=== PATIENT | male | born 1995 ===

== ENCOUNTER 2021-06-14 03:25 | Emergency (ER) | payer OTHER, SELFPAY ==
--- NOTE | ~2021-06-14 | CT_ITS ---
EXAMINATION: CT ABDOMEN AND PELVIS WITH CONTRAST CLINICAL INFORMATION: Abdominal pain COMPARISON: None TECHNIQUE: Multidetector volumetric images were obtained from the superior aspect of the liver through the pubic symphysis following administration 85 mL of Omnipaque 350 intravenous contrast. Sagittal and coronal reformatted images were obtained on the technologist's workstation. Oral contrast: No This CT examination was performed using dose optimization techniques as appropriate, variously including the following: *Automated exposure control *Adjustment of mA and/or kV according to patient size (this includes techniques or standardized protocols for targeted exams where dose is matched to indication/reason for exam; i.e. extremities or head) *Use of iterative reconstruction technique DLP: 412 mGy-cm FINDINGS: LUNG BASES: The visualized lung bases are unremarkable. LIVER, GALLBLADDER, AND BILIARY TREE: The liver is normal in size, shape, and attenuation. No focal hepatic lesion or biliary ductal dilatation is present. Gallbladder unremarkable. PANCREAS: Unremarkable. SPLEEN: Unremarkable. ADRENAL GLANDS: Unremarkable. KIDNEYS AND URETERS: The kidneys are normal in size, shape, and attenuation. No hydronephrosis, hydroureter, or calculi seen. No perinephric stranding. BLADDER: Unremarkable. GASTROINTESTINAL TRACT: The small and large bowel are unremarkable. The appendix is unremarkable. ABDOMINAL WALL: No significant hernia is appreciated. LYMPH NODES: Normal. VASCULAR: Unremarkable. PELVIC VISCERA: Unremarkable. OSSEOUS STRUCTURES: Unremarkable. CT/CT abdomen pelvis w con IMPRESSION: No significant abnormality.
[2021-06-14 03:35] VITALS: BP 146/99; PULSE 100; RESP 16; TEMP 37.1; O2SAT 97; BMI 22.4
[2021-06-14 03:53] LABS: MANUAL DIFF FLAG NO
[2021-06-14 03:54] LABS: Basophils Absolute Auto 0.1 X10*3/uL (0.0-0.2); Basophils Percent Auto 1.1 % (0-2); Eosinophils Percent Auto 0.5 % (0-4); Hematocrit 42.6 % (42.0-52.0); Hemoglobin 14.9 g/dl (14.0-18.0); Imm Gran Abs Auto 0.04 X10*3/uL (0.00-0.03); Imm Gran Pct Auto 0.5 % (0.0-0.4); Lymphocytes Absolute Auto 1.2 X10*3/uL (1.2-4.9); Lymphocytes Percent Auto 15.5 % (20-40); Mean Corpuscular Hemoglobin 32.9 pg (27.0-33.0); Mean Platelet Volume 10.8 fL (9.4-12.4); Monocytes Absolute Auto 0.7 X10*3/uL (0.1-1.2); Monocytes Percent Auto 9.1 % (2-11); Neutrophils Absolute Auto 5.5 x10*3/uL (2.0-8.3); Neutrophils Percent Auto 73.3 % (45-73); Platelet Count 212 X10*3/uL (160-400); Red Blood Count 4.53 X10*6/uL (4.60-5.80); Red Cell Distribution Width 12.6 % (11.0-16.0); White Blood Count 7.6 X10*3/uL (4.8-10.8)
[2021-06-14 03:56] VITALS: BP 111/87; PULSE 83; RESP 16; TEMP 36.7; O2SAT 96
[2021-06-14 04:10] LABS: Ethanol 283 mg/dL
[2021-06-14 04:16] LABS: Alanine Aminotransferase 137 U/L (0-40); Albumin Level 4.9 g/dL (3.5-5.0); Alkaline Phosphatase 108 U/L (39-117); Anion Gap 21 (12-20); Aspartate Amino Transferase 387 U/L (5-37); Bilirubin Direct 0.8 mg/dL (0.0-0.5); Bilirubin Total 1.4 mg/dL (0.0-1.0); Blood Urea Nitrogen 6 mg/dL (9-16); Calcium 10.3 mg/dL (8.4-10.2); Carbon Dioxide 29 mmol/L (22-29); Chloride 95 mmol/L (96-108); Creatinine Clr Calc Pharmacy 164.2; Estimated Glomerular Filt Rate > 60; Glucose Random 101 mg/dL (60-115); Lipase 141 U/L (8-78); Potassium 4.1 mmol/L (3.3-5.1); Sodium 141 mmol/L (135-145)
--- NOTE | 2021-06-14 04:35 | ED_ITS ---
HPI - Abdominal Pain General Chief Complaint: Abdominal Pain Stated Complaint: Abd pain Time Seen by Provider: 06/14/21 04:08 Source: patient Mode of arrival: ambulatory History of Present Illness HPI narrative: 26-year-old male who presents with alcohol dependence and although states that he has recently been sober endorses that he ?had a shot? just prior to presenting here this evening. Patient reports ongoing abdominal discomfort as sociated with nausea and vomiting but denies any fever chills and states that the pain is primarily on the right side of his abdomen. Patient states that he has been having this right-sided abdominal pain for number of months and was evaluated at [facility] where ?they did not do anything?. Related Data Allergies Allergy/AdvReac Type Severity Reaction Status Date / Time No Known Allergies Allergy Unverified 01/13/20 19:14 [No Known Allergies*] Review of Systems Review of Systems Pertinent positives and negatives as stated in HPI 10 point review of systems is otherwise negative. PMFSH Past Medical History Source: nursing notes reviewed Medical History Alcohol abuse Liver disease Withdrawal seizures Social History Social History Advance Directives: No Physical Exam ED Vital Signs: Vital Signs - 24 hr 06/14/21 03:35 06/14/21 03:56 06/14/21 05:20 Temperature 98.8 F 98.1 F Pulse Rate 100 83 77 Respiratory Rate 16 16 15 Blood Pressure 146/99 H 111/87 124/74 Pulse Oximetry 97 96 97 BMI result Body Mass Index 22.4 VITAL SIGNS: Reviewed. GENERAL: Well developed, well nourished, in no acute distress. HEAD: Normocephalic/atraumatic EYES: PERRLA, EOMI OROPHARYNX: no oral lesions noted, posterior pharynx clear LUNGS: Normal breath sounds. No adventitious sounds or accessory muscle use. SpO2<97> CARDIOVASCULAR: Regular rate and rhythm without noted murmurs ABDOMEN: Soft, tenderness noted in the epigastrium and right side of the abdomen without rebound, no signs of trauma, non-distended with bowel sounds. MUSCULOSKELETAL: No tenderness, deformities, or effusions noted on gross inspection. EXTREMITIES: No cyanosis, clubbing or edema. SKIN: Inspection of the skin reveals no rashes NEUROLOGIC: Alert and oriented x 4. Strength and sensation to light touch were grossly intact x 4. Course Course Course Narrative: 26-year-old male with history and clinical presentation suggestive of possible pancreatitis secondary to alcohol consumption, alcohol intoxication, and will evaluate for any other contributing factors. Patient placed on a CIWA scale. Review of all investigations consistent with mild pancreatitis, no acute findings on CT scan, after fluid resuscitation and on re-evaluation patient is noted to tolerate oral intake and is otherwise stable for discharge to home with medication to control the nausea and instructions to stop drinking alcohol. N oted elevated liver enzymes consistent with patient's underlying history of alcohol cirrhosis. MDM - Abdominal Pain Lab Data Result diagrams: 06/14/21 03:49 06/14/21 03:49 Labs: Lab Results 06/14/21 06/14/21 06/14/21 Range/Units 03:49 03:49 03:49 WBC 7.6 (4.8-10.8) X10*3/uL RBC 4.53 L (4.60-5.80) X10*6/uL Hgb 14.9 (14.0-18.0) g/dl Hct 42.6 (42.0-52.0) % MCV 94.0 (80.0-98.0) fL MCH 32.9 (27.0-33.0) pg MCHC 35.0 (31.0-36.0) g/dl RDW 12.6 (11.0-16.0) % Plt Count 212 (160-400) X10*3/uL MPV 10.8 (9.4-12.4) fL Immature Gran % (Auto) 0.5 H (0.0-0.4) % Neut % (Auto) 73.3 H (45-73) % Lymph % (Auto) 15.5 L (20-40) % [place] % (Auto) 9.1 (2-11) % Eos % (Auto) 0.5 (0-4) % Baso % (Auto) 1.1 (0-2) % Lymph # (Auto) 1.2 (1.2-4.9) X10*3/uL [place] # (Auto) 0.7 (0.1-1.2) X10*3/uL Eos # (Auto) 0.0 (0.0-0.4) X10*3/uL Baso # (Auto) 0.1 (0.0-0.2) X10*3/uL Abs Immat Gran (auto) 0.04 H (0.00-0.03) X10*3/uL Absolute Neuts (auto) 5.5 (2.0-8.3) x10*3/uL Absolute Nucleated RBC 0.000 (0.0-0.012) X10*3/uL Nucleated RBC % (auto) 0.0 (0.0-0.2) /100WBC Sodium 141 (135-145) mmol/L Potassium 4.1 (3.3-5.1) mmol/L Chloride 95 L (96-108) mmol/L Carbon Dioxide 29 (22-29) mmol/L Anion Gap 21 H (12-20) BUN 6 L (9-16) mg/dL Creatinine 0.75 (0.5-1.4) mg/dL Estim Creat Clear Calc 164.2 Estimated GFR > 60 Random Glucose 101 (60-115) mg/dL Calcium 10.3 H (8.4-10.2) mg/dL Total Bilirubin 1.4 H (0.0-1.0) mg/dL Direct Bilirubin 0.8 H (0.0-0.5) mg/dL AST 387 H (5-37) U/L ALT 137 H (0-40) U/L Alkaline Phosphatase 108 (39-117) U/L Total Protein 9.0 H (6.5-8.0) g/dL Albumin 4.9 (3.5-5.0) g/dL Lipase 141 H (8-78) U/L Ethyl Alcohol 283 mg/dL Discharge Plan Discharge Clinical Impression: Alcohol intoxication, Abdominal pain, Alcohol dependence, Pancreatitis, Cirrhosis of liver Patient Disposition: Home, Self-Care Instructions: Abuse of Alcohol (ED), Cirrhosis (ED), Pancreatitis (ED) Additional Instructions: Resume all home medications as prescribed. Follow-up with your primary care provider in the next 1-2 days for re-evaluation and further outpatient management. Return to the ER for worsening symptoms.
[2021-06-14] MEDS: 0.9 % Sodium Chloride 2,000 ML 999 ML IV (05:19)
[2021-06-14 05:20] VITALS: BP 124/74; PULSE 77; RESP 15; O2SAT 97
[2021-06-14] MEDS: iohexoL 350 MG/ML 100 ML INFUS..BTL 85 ML IV (05:20)
--- NOTE | 2021-06-14 07:41 | PC.NURSE ---
spoke with pt about his d/c he had questions regarding detox programs. informed pt that recovery coaches will be in [place] and pt requested to stay to speak with them
[2021-06-14 08:06] VITALS: BP 100/49; PULSE 83; RESP 14; O2SAT 96
--- NOTE | 2021-06-14 08:57 | PC.NURSE ---
care team Chet met with pt regarding detox, student success coach Munir phone number given to pt. pt encouraged to follow up with detox and given list of detox facilities with numbers to call
--- NOTE | 2021-06-14 09:07 | MHC.CARE ---
CARE Team meets with pt. Pt requested that someone meet with him about securing Detox placement. Ptr's RN provided a list of detox facilities. Pt was given information regarding [facility]. Both organizations were discussed with pt and what the benefit of each was. Recovery coaches were discussed with pt. CARE Team will give pt's phonenumber to the Business Performance Analyst on duty and will ask that they call pt to further assist pt.
== END 2021-06-14 09:34 | disposition home or self-care (01) ==
PROVIDERS: Emergency Provider Student in an Organized Health Care Education/Training Program
DX: F10.129 Alcohol abuse with intoxication, unspecified (principal); Y90.8 Blood alcohol level of 240 mg/100 ml or more; K85.90 Acute pancreatitis without necrosis or infection, unspecified; K74.60 Unspecified cirrhosis of liver; Z79.899 Other long term (current) drug therapy
CPT/HCPCS: 36415; 74177; 80053; 82077; 82248; 83690; 85025; 96360; 96361; 99284; Q9967

== ENCOUNTER 2021-07-03 03:08 | Emergency (ER) | payer OTHER, SELFPAY ==
[2021-07-03 03:27] VITALS: BP 142/85; PULSE 104; RESP 18; TEMP 37.1; O2SAT 97; BMI 20.2
[2021-07-03 03:39] LABS: MANUAL DIFF FLAG NO
[2021-07-03 03:40] LABS: Basophils Absolute Auto 0.1 X10*3/uL (0.0-0.2); Basophils Percent Auto 1.6 % (0-2); Eosinophils Percent Auto 0.4 % (0-4); Hematocrit 41.5 % (42.0-52.0); Hemoglobin 14.3 g/dl (14.0-18.0); Imm Gran Abs Auto 0.01 X10*3/uL (0.00-0.03); Imm Gran Pct Auto 0.2 % (0.0-0.4); Lymphocytes Absolute Auto 0.9 X10*3/uL (1.2-4.9); Lymphocytes Percent Auto 20.8 % (20-40); Mean Corpuscular HGB Conc 34.5 g/dl (31.0-36.0); Mean Corpuscular Hemoglobin 32.9 pg (27.0-33.0); Mean Corpuscular Volume 95.6 fL (80.0-98.0); Mean Platelet Volume 11.1 fL (9.4-12.4); Monocytes Absolute Auto 0.4 X10*3/uL (0.1-1.2); Monocytes Percent Auto 8.2 % (2-11); Neutrophils Absolute Auto 3.1 x10*3/uL (2.0-8.3); Neutrophils Percent Auto 68.8 % (45-73); Platelet Count 152 X10*3/uL (160-400); Red Blood Count 4.34 X10*6/uL (4.60-5.80); Red Cell Distribution Width 13.4 % (11.0-16.0); White Blood Count 4.5 X10*3/uL (4.8-10.8)
[2021-07-03 03:46] LABS: Prothrombin Time 11.6 SEC (9.9-13.0)
[2021-07-03 03:52] LABS: COVID-19 Test Negative (Negative)
[2021-07-03 04:02] LABS: Ethanol 260 mg/dL
[2021-07-03 04:07] LABS: Alanine Aminotransferase 92 U/L (0-40); Albumin Level 4.8 g/dL (3.5-5.0); Alkaline Phosphatase 104 U/L (39-117); Anion Gap 22 (12-20); Aspartate Amino Transferase 159 U/L (5-37); Bilirubin Direct 0.6 mg/dL (0.0-0.5); Bilirubin Total 1.1 mg/dL (0.0-1.0); Blood Urea Nitrogen 10 mg/dL (9-16); Calcium 10.5 mg/dL (8.4-10.2); Carbon Dioxide 25 mmol/L (22-29); Chloride 95 mmol/L (96-108); Creatinine Clr Calc Pharmacy 152.6; Estimated Glomerular Filt Rate > 60; Glucose Random 100 mg/dL (60-115); Lipase 94 U/L (8-78); Potassium 4.4 mmol/L (3.3-5.1); Sodium 138 mmol/L (135-145); Total Protein 8.5 g/dL (6.5-8.0)
[2021-07-03 06:16] VITALS: BP 125/69; PULSE 83; RESP 16; O2SAT 99
[2021-07-03 07:21] VITALS: BP 116/66; PULSE 91; RESP 14; TEMP 37.3; O2SAT 97
--- NOTE | 2021-07-03 10:21 | ED.ALCOHOL ---
HPI - Alcohol General Chief Complaint: Abdominal Pain Stated Complaint: abd pain Time Seen by Provider: 07/03/21 10:21 Source: patient Limitations: no limitations History of Present Illness HPI narrative: 26-year-old male seen by the previous provider no note in the chart no sign-out given to me patient complaining after 7 hours and Department and having anything done labs show patient came in intoxicated patient has history of withdrawal seizures. Patient has no new complaints and is wanting to go home I will have the patient talk to the horse riding coach or instructor. complaint: alcohol intoxication Related Data Allergies Allergy/AdvReac Type Severity Reaction Status Date / Time No Known Allergies Allergy Verified 07/03/21 03:29 [No Known Allergies*] Review of Systems Review of Systems: Review of systems: General: Patient denies any fever chills recent illness or falls Musculoskeletal: Denies back pain or body aches or other injuries HEENT: denies headache, runny nose, ear pain Respiratory: denies shortness of breath, cough Cardiovascular: no chest pain or palpitations : denies dysuria, frequency Abdomen: no nausea vomiting denies abdominal pain Extremities: no swelling, no pain Skin: no diaphoresis Yes all other systems are reviewed and are negative PMFSH Past Medical History Medical History Alcohol abuse Liver disease Withdrawal seizures Social History Social History Advance Directives: No Advance Directives Information Provided: Yes Physical Exam ED Vital Signs: Vital Signs - 24 hr 07/03/21 03:27 07/03/21 06:16 07/03/21 07:21 Temperature 98.7 F 99.1 F Pulse Rate 104 H 83 91 Respiratory Rate 18 16 14 Blood Pressure 142/85 H 125/69 116/66 Pulse Oximetry 97 99 97 BMI result Body Mass Index 20.2 Const General: cooperative and anxious Orientation/consciousness: oriented to person, oriented to place, oriented to time and patient oriented x3 HENMT Head: Yes normal to inspection Chest Chest palpation & inspection: normal inspection of the chest Resp Effort & Inspection: normal respiratory effort and able to speak in complete sentences Auscultation: clear to auscultation bilaterally Cardio Rhythm: regular rhythm GI Inspection: Yes normal to inspection Skin General skin exam: no rashes or lesions noted Neuro General: oriented to person, oriented to place, oriented to time and patient oriented x3 MDM - Alcohol MDM Narrative Medical decision making narrative: patient signed out to me from Dr. Chang no note found on the patient I also saw the patient to read noted on was performed patient complaining of pain from his bottom of his chest to his lower abdomen which is chronic in nature patient me to push in his bili. His labs are unremarkable ED if this patient needs CT scan at this time as he states this is chronic pain. Patient is meeting with horse riding coach or instructor is alert oriented has walked around the department without any issue. I feel safe discharging this patient home. Differential Diagnosis Differential diagnosis: Likely alcohol dependence, alcohol withdrawal delirium and alcohol intoxication Medical Records Attestation: I reviewed the patient's medical records. Lab Data Result diagrams: 07/03/21 03:33 07/03/21 03:33 Labs: Lab Results 07/03/21 07/03/21 07/03/21 Range/Units 03:33 03:33 03:33 WBC 4.5 L (4.8-10.8) X10*3/uL RBC 4.34 L (4.60-5.80) X10*6/uL Hgb 14.3 (14.0-18.0) g/dl Hct 41.5 L (42.0-52.0) % MCV 95.6 (80.0-98.0) fL MCH 32.9 (27.0-33.0) pg MCHC 34.5 (31.0-36.0) g/dl RDW 13.4 (11.0-16.0) % Plt Count 152 L D (160-400) X10*3/uL MPV 11.1 (9.4-12.4) fL Immature Gran % (Auto) 0.2 (0.0-0.4) % Neut % (Auto) 68.8 (45-73) % Lymph % (Auto) 20.8 (20-40) % [place] % (Auto) 8.2 (2-11) % Eos % (Auto) 0.4 (0-4) % Baso % (Auto) 1.6 (0-2) % Lymph # (Auto) 0.9 L (1.2-4.9) X10*3/uL [place] # (Auto) 0.4 (0.1-1.2) X10*3/uL Eos # (Auto) 0.0 (0.0-0.4) X10*3/uL Baso # (Auto) 0.1 (0.0-0.2) X10*3/uL Abs Immat Gran (auto) 0.01 (0.00-0.03) X10*3/uL Absolute Neuts (auto) 3.1 (2.0-8.3) x10*3/uL Absolute Nucleated RBC 0.000 (0.0-0.012) X10*3/uL Nucleated RBC % (auto) 0.0 (0.0-0.2) /100WBC PT (9.9-13.0) SEC INR (0.9-1.1) Sodium 138 (135-145) mmol/L Potassium 4.4 (3.3-5.1) mmol/L Chloride 95 L (96-108) mmol/L Carbon Dioxide 25 (22-29) mmol/L Anion Gap 22 H (12-20) BUN 10 D (9-16) mg/dL Creatinine 0.75 (0.5-1.4) mg/dL Estim Creat Clear Calc 152.6 Estimated GFR > 60 Random Glucose 100 (60-115) mg/dL Calcium 10.5 H (8.4-10.2) mg/dL Total Bilirubin 1.1 H (0.0-1.0) mg/dL Direct Bilirubin 0.6 H (0.0-0.5) mg/dL AST 159 H (5-37) U/L ALT 92 H (0-40) U/L Alkaline Phosphatase 104 (39-117) U/L Total Protein 8.5 H (6.5-8.0) g/dL Albumin 4.8 (3.5-5.0) g/dL Lipase 94 H (8-78) U/L Ethyl Alcohol mg/dL COVID-19 (ARIANE) Negative (Negative) COVID-19 Clin Com See Note 07/03/21 07/03/21 Range/Units 03:33 03:33 WBC (4.8-10.8) X10*3/uL RBC (4.60-5.80) X10*6/uL Hgb (14.0-18.0) g/dl Hct (42.0-52.0) % MCV (80.0-98.0) fL MCH (27.0-33.0) pg MCHC (31.0-36.0) g/dl RDW (11.0-16.0) % Plt Count (160-400) X10*3/uL MPV (9.4-12.4) fL Immature Gran % (Auto) (0.0-0.4) % Neut % (Auto) (45-73) % Lymph % (Auto) (20-40) % [place] % (Auto) (2-11) % Eos % (Auto) (0-4) % Baso % (Auto) (0-2) % Lymph # (Auto) (1.2-4.9) X10*3/uL [place] # (Auto) (0.1-1.2) X10*3/uL Eos # (Auto) (0.0-0.4) X10*3/uL Baso # (Auto) (0.0-0.2) X10*3/uL Abs Immat Gran (auto) (0.00-0.03) X10*3/uL Absolute Neuts (auto) (2.0-8.3) x10*3/uL Absolute Nucleated RBC (0.0-0.012) X10*3/uL Nucleated RBC % (auto) (0.0-0.2) /100WBC PT 11.6 (9.9-13.0) SEC INR 1.0 (0.9-1.1) Sodium (135-145) mmol/L Potassium (3.3-5.1) mmol/L Chloride (96-108) mmol/L Carbon Dioxide (22-29) mmol/L Anion Gap (12-20) BUN (9-16) mg/dL Creatinine (0.5-1.4) mg/dL Estim Creat Clear Calc Estimated GFR Random Glucose (60-115) mg/dL Calcium (8.4-10.2) mg/dL Total Bilirubin (0.0-1.0) mg/dL Direct Bilirubin (0.0-0.5) mg/dL AST (5-37) U/L ALT (0-40) U/L Alkaline Phosphatase (39-117) U/L Total Protein (6.5-8.0) g/dL Albumin (3.5-5.0) g/dL Lipase (8-78) U/L Ethyl Alcohol 260 mg/dL COVID-19 (ARIANE) (Negative) COVID-19 Clin Com Discharge Plan Discharge Clinical Impression: Alcohol intoxication, Abdominal pain Patient Disposition: Home, Self-Care Instructions: Alcohol Intoxication (ED), Abuse of Alcohol (DC), Alcohol Use Disorder (ED) Additional Instructions: Please get help for your drinking
[2021-07-03] MEDS: LORazepam 1 MG TABLET 2 MG PO (11:20)
[2021-07-03] MEDS: Nicotine Polacrilex 2 MG GUM BUCCAL (13:30)
[2021-07-03] MEDS: Nicotine 21 MG PATCH.TD24 TRANSDERMA (13:30)
--- NOTE | 2021-07-03 13:31 | PC.NURSE ---
pt was moved to RP room at 11am and awaiting [facility] recovery operator to obtain an detox bed for him. patient was offered multiple detox beds by the catalyst recovery operator and the patient has declined them. catalyst recovery operator stated to this nurse that the patient can be discharged as he is declining services.
[2021-07-03 13:33] VITALS: BP 121/66; PULSE 94; RESP 17; TEMP 36.7; O2SAT 97
--- NOTE | 2021-07-03 13:41 | MHC.RECOVSUP ---
? Reason for consult:Recovery Support o Current location:-1 o Identified substance use concern:ETOH - Withdrawal - Seeking ATS (detox) - Support ? Intervention: o Community resources provided o Harm reduction discussion ? Plan: o Patient to follow up with [facility] after discharge ? Additional information:I was able to find him a bed at [facility], but patient refused to go there. I was able to find him a bed at [facility]. Patient refused to go to detox. Patient did not want to give up his belongings including phone. Patient was given community resources and a referral to [facility]. Also had a discussion re:Harm Reduction.
== END 2021-07-03 13:50 | disposition home or self-care (01) ==
PROVIDERS: Emergency Provider Student in an Organized Health Care Education/Training Program
DX: F10.120 Alcohol abuse with intoxication, uncomplicated (principal); Y90.8 Blood alcohol level of 240 mg/100 ml or more; R10.9 Unspecified abdominal pain; Z20.822 Contact with and (suspected) exposure to COVID-19
CPT/HCPCS: 36415; 80048; 80076; 82077; 83690; 85025; 85610; 87635; 99283; 99284

== ENCOUNTER 2021-07-18 13:17 | Emergency (ER) | payer OTHER, SELFPAY ==
--- NOTE | ~2021-07-18 | CT_ITS ---
EXAMINATION: CT FACIAL BONES WITH CONTRAST CLINICAL INFORMATION: Right-sided facial swelling COMPARISON: None TECHNIQUE: Axial images through the facial bones following IV contrast. Patient received 85 mL Omnipaque 350 intravenous contrast. Sagittal and coronal reconstructions on the technologist workstation were performed. Patient dose 4 8 8 mg/cm. This CT examination was performed using dose optimization techniques as appropriate, variously including the following: *Automated exposure control *Adjustment of mA and/or kV according to patient size (this includes techniques or standardized protocols for targeted exams where dose is matched to indication/reason for exam; i.e. extremities or head) *Use of iterative reconstruction technique DLP: 488 mGy-cm FINDINGS: There is skin thickening and some infiltration of the fat over the right side of the face. Findings are suggestive of a cellulitis. No focal fluid collection is seen. There is poor dentition. No dental abscess is seen. There is membranous soft tissue thickening in the bilateral maxillary sinuses, right greater than left. There are several periapical cysts and maxillary sinus disease may be dental in origin. The paranasal sinuses are otherwise well aerated and clear. The mastoid air cells and middle ears are clear. The temporomandibular joints are normal. The orbits are normal. Visualized intracranial structures are normal. There is shotty cervical lymphadenopathy. No enlarged lymph nodes are seen. The naso, ricardo-and hypopharynx and larynx is normal. The salivary glands are normal. Review at bone windows is normal. Vascular structures are normal. CT/CT facial bones w con IMPRESSION: Skin thickening and infiltration of the fat of the right side of the face suggestive of cellulitis. No abscess seen. Poor dentition. No dental abscess seen. Membranous soft tissue thickening in the bilateral maxillary sinuses, right greater than left.
--- NOTE | 2021-07-18 13:47 | PC.NURSE ---
called X1
[2021-07-18 13:56] VITALS: BP 116/75; PULSE 85; RESP 16; TEMP 37.1; O2SAT 99; BMI 21.1
--- NOTE | 2021-07-18 14:14 | ED.GENADULT ---
HPI - General Adult General Chief complaint: General Medical Stated complaint: cyst Time Seen by Provider: 07/18/21 14:02 Source: patient Mode of arrival: ambulatory Limitations: no limitations History of Present Illness HPI narrative: 26-year-old male here with reports of right-sided facial swelling for the last 2 days. Patient tells me he knows he has multiple broken teeth but he does not feel like they are bothering him currently. He denies any fevers or chills. Related Data Previous Rx's Medication Instructions Recorded clindamycin HCl 300 mg capsule 300 mg PO Q8H 7 Days #21 cap 07/18/21 ibuprofen 600 mg tablet 600 mg PO Q8H PRN #20 tab 07/18/21 Allergies Allergy/AdvReac Type Severity Reaction Status Date / Time No Known Allergies Allergy Verified 07/03/21 03:29 [No Known Allergies*] Review of Systems Review of Systems: Yes all other systems are reviewed and are negative Constitutional: Constitutional: Reports no additional constitutional complaints, Denies body ache(s), Denies chills, Denies fever(s), Denies headache(s) and Denies weakness Eyes: Eyes: Reports no additional eye complaints and Denies change in vision ENT: Reports system reviewed and no additional complaints, except as documented, Denies dizziness, Reports facial pain, Denies headache(s), Denies nasal congestion, Denies nasal discharge and Denies neck pain Cardiovascular: Cardiovascular: Reports no additional cardiovascular complaints, Denies chest pain, Denies leg edema and Denies dyspnea Respiratory: Respiratory: Reports no additional respiratory complaints, Denies cough and Denies dyspnea Gastrointestinal: Gastrointestinal: Reports no additional gastrointestinal complaints, Denies abdominal pain, Denies diarrhea, Denies nausea and Denies vomiting Genitourinary: Genitourinary: Denies urinary incontinence Musculoskeletal: Musculoskeletal: Reports no additional musculoskeletal complaints, Denies back pain, Denies arthralgias, Denies joint swelling, Denies neck pain, Denies numbness and Denies tingling Integumentary/Breasts: Skin/Breast: Reports system reviewed and no additional complaints, except as docu and Denies rash Neurologic: Reports system reviewed and no additional complaints, except as documented, Denies dizziness, Denies headache(s), Denies numbness, Denies tingling and Denies weakness [facility] Past Medical History Attestation statement: The following information was validated with the patient. Source: old records reviewed and nursing notes reviewed Medical History Alcohol abuse Liver disease Withdrawal seizures Social History Social History Advance Directives: No Advance Directives Information Provided: No Physical Exam ED Vital Signs: Vital Signs - 24 hr 07/18/21 13:56 Temperature 98.8 F Pulse Rate 85 Respiratory Rate 16 Blood Pressure 116/75 Pulse Oximetry 99 BMI result Body Mass Index 21.1 Const General: cooperative, healthy appearing, comfortable and no acute distress Orientation/consciousness: patient oriented x3 Limitations: no limitations HENMT Head: Yes normal to inspection Ears: hearing grossly normal bilaterally and TM's normal bilaterally General nose exam: Normal external nose present Face and sinus: Yes edema (Right maxillary area-mod) Mouth: Normal oral and palatal mucosa present and no trismus Teeth and gingiva: caries (extensive) Throat: Yes posterior oropharynx normal, Yes tonsils normal and Yes uvula midline Eyes General: appearance normal, both eyes and all related structures Pupils: Equal, round and reactive pupils present Neck Neck: Yes normal visual inspection, Yes full ROM, Yes no lymphadenopathy and Yes no meningeal signs Chest Chest palpation & inspection: normal inspection of the chest Resp Effort & Inspection: normal respiratory effort Auscultation: clear to auscultation bilaterally Cardio Rate: regular rate Rhythm: regular rhythm Peripheral pulses: Peripheral pulses 2+ throughout GI Inspection: Yes normal to inspection Palpation (GI): Soft to palpation and nontender General: Yes no CVA tenderness Back/Spine/Pelvis Back: no CVA tenderness Thoracic/Lumbar Spine: thoracic and lumbar spine normal to inspection Skin General skin exam: no rashes or lesions noted Neuro General: patient oriented x3, moves all extremities and no meningeal signs Cranial nerves: Yes CN's II-XII intact bilaterally, Yes Equal, round and reactive pupils present and Yes Bilaterally intact EOM present Cognition (Neuro): normal cognition Gait exam (Neuro): Normal gait present Motor exam (neuro): 5/5 motor strength present throughout Sensory Exam: Normal double simultaneous stimulation for sensation Extrem General: Yes normal to inspection, Yes no pedal edema and Yes no calf tenderness Course Course Course Narrative: 26-year-old male here with right-sided facial swelling with extensive dental caries for the last 2 days. No trismus. Airway is open and intact. No evidence of Drake's angina. Will check labs, CT facial bones. Will give analgesia and clindamycin 1700-CT shows cellulitis with no evidence of fluid collection.. Patient will be discharged home with course of clindamycin. Recommend he follow-up with dental clinic outpatient. Reviewed worrisome signs and symptoms of when to return to the emergency department. Comfortable discharge home. Medical Decision Making Medical Records Medical records reviewed: Yes I reviewed the patient's medical records. Lab Data Lab results reviewed: Yes I reviewed the patient's lab results. Result diagrams: 07/18/21 14:34 07/18/21 14:34 Labs: Lab Results 07/18/21 07/18/21 07/18/21 Range/Units 14:34 14:34 15:48 WBC 7.7 (4.8-10.8) X10*3/uL RBC 3.83 L (4.60-5.80) X10*6/uL Hgb 12.6 L (14.0-18.0) g/dl Hct 37.7 L (42.0-52.0) % MCV 98.4 H (80.0-98.0) fL MCH 32.9 (27.0-33.0) pg MCHC 33.4 (31.0-36.0) g/dl RDW 13.1 (11.0-16.0) % Plt Count 362 D (160-400) X10*3/uL MPV 10.3 (9.4-12.4) fL Immature Gran % (Auto) 0.4 (0.0-0.4) % Neut % (Auto) 73.6 H (45-73) % Lymph % (Auto) 15.7 L (20-40) % [place] % (Auto) 7.2 (2-11) % Eos % (Auto) 1.8 (0-4) % Baso % (Auto) 1.3 (0-2) % Lymph # (Auto) 1.2 (1.2-4.9) X10*3/uL [place] # (Auto) 0.6 (0.1-1.2) X10*3/uL Eos # (Auto) 0.1 (0.0-0.4) X10*3/uL Baso # (Auto) 0.1 (0.0-0.2) X10*3/uL Abs Immat Gran (auto) 0.03 (0.00-0.03) X10*3/uL Absolute Neuts (auto) 5.7 (2.0-8.3) x10*3/uL Absolute Nucleated RBC 0.000 (0.0-0.012) X10*3/uL Nucleated RBC % (auto) 0.0 (0.0-0.2) /100WBC Sodium 141 (135-145) mmol/L Potassium 3.6 (3.3-5.1) mmol/L Chloride 101 (96-108) mmol/L Carbon Dioxide 28 (22-29) mmol/L Anion Gap 16 (12-20) BUN 4 L D (9-16) mg/dL Creatinine 0.65 (0.5-1.4) mg/dL Estim Creat Clear Calc 178.3 Estimated GFR > 60 POC Glucose 95 (60-115) mg/dL Random Glucose 52 L* (60-115) mg/dL Calcium 9.9 (8.4-10.2) mg/dL Imaging Data ct facial bone: Attestation: I personally reviewed and interpreted this imaging study as follows: Radiologist's impression: FINDINGS: There is skin thickening and some infiltration of the fat over the right side of the face. Findings are suggestive of a cellulitis. No focal fluid collection is seen. There is poor dentition. No dental abscess is seen. There is membranous soft tissue thickening in the bilateral maxillary sinuses, right greater than left. There are several periapical cysts and maxillary sinus disease may be dental in origin. The paranasal sinuses are otherwise well aerated and clear. The mastoid air cells and middle ears are clear. The temporomandibular joints are normal. The orbits are normal. Visualized intracranial structures are normal. There is shotty cervical lymphadenopathy. No enlarged lymph nodes are seen. The naso, ricardo-and hypopharynx and larynx is normal. The salivary glands are normal. Review at bone windows is normal. Vascular structures are normal. CT/CT facial bones w con IMPRESSION: Skin thickening and infiltration of the fat of the right side of the face suggestive of cellulitis. No abscess seen. Poor dentition. No dental abscess seen. Membranous soft tissue thickening in the bilateral maxillary sinuses, right greater than left. Discharge Plan Discharge Clinical Impression: Facial cellulitis Patient Disposition: Home, Self-Care Instructions: Cellulitis (DC) Additional Instructions: Warm compresses to the face Follow-up with dental clinic [facility] Prescriptions: New clindamycin HCl 300 mg capsule 300 mg PO Q8H 7 Days Qty: 21 0RF ibuprofen 600 mg tablet 600 mg PO Q8H PRN (Reason: pain) Qty: 20 0RF Referrals: Physician,None [Primary Care Provider] - 1 week
[2021-07-18 14:38] LABS: MANUAL DIFF FLAG NO
[2021-07-18 14:40] LABS: Basophils Absolute Auto 0.1 X10*3/uL (0.0-0.2); Basophils Percent Auto 1.3 % (0-2); Eosinophils Absolute Auto 0.1 X10*3/uL (0.0-0.4); Eosinophils Percent Auto 1.8 % (0-4); Hematocrit 37.7 % (42.0-52.0); Hemoglobin 12.6 g/dl (14.0-18.0); Imm Gran Abs Auto 0.03 X10*3/uL (0.00-0.03); Imm Gran Pct Auto 0.4 % (0.0-0.4); Lymphocytes Absolute Auto 1.2 X10*3/uL (1.2-4.9); Lymphocytes Percent Auto 15.7 % (20-40); Mean Corpuscular HGB Conc 33.4 g/dl (31.0-36.0); Mean Corpuscular Hemoglobin 32.9 pg (27.0-33.0); Mean Corpuscular Volume 98.4 fL (80.0-98.0); Mean Platelet Volume 10.3 fL (9.4-12.4); Monocytes Absolute Auto 0.6 X10*3/uL (0.1-1.2); Monocytes Percent Auto 7.2 % (2-11); Neutrophils Absolute Auto 5.7 x10*3/uL (2.0-8.3); Neutrophils Percent Auto 73.6 % (45-73); Platelet Count 362 X10*3/uL (160-400); Red Blood Count 3.83 X10*6/uL (4.60-5.80); Red Cell Distribution Width 13.1 % (11.0-16.0); White Blood Count 7.7 X10*3/uL (4.8-10.8)
[2021-07-18] MEDS: Ketorolac Tromethamine 30 MG/ML VIAL IVPUSH (14:46)
[2021-07-18] MEDS: Clindamycin Phosphate/D5W 600 MG/50 ML PIGGYBACK 100 MG IV (14:51)
[2021-07-18 15:15] LABS: Anion Gap 16 (12-20); Blood Urea Nitrogen 4 mg/dL (9-16); Calcium 9.9 mg/dL (8.4-10.2); Carbon Dioxide 28 mmol/L (22-29); Chloride 101 mmol/L (96-108); Creatinine Clr Calc Pharmacy 178.3; Estimated Glomerular Filt Rate > 60; Glucose Random 52 mg/dL (60-115); Potassium 3.6 mmol/L (3.3-5.1); Sodium 141 mmol/L (135-145)
[2021-07-18] MEDS: iohexoL 350 MG/ML 100 ML INFUS..BTL IV (15:46)
[2021-07-18 15:52] LABS: Glucose, Whole Blood 95 mg/dL (60-115)
== END 2021-07-18 17:09 | disposition home or self-care (01) ==
PROVIDERS: Nurse Practitioner Family; Emergency Provider Emergency Medicine
DX: K12.2 Cellulitis and abscess of mouth (principal); K02.9 Dental caries, unspecified; Z79.899 Other long term (current) drug therapy
CPT/HCPCS: 36415; 70487; 80048; 82947; 85025; 96365; 96375; 99284; J1885; Q9967

== ENCOUNTER 2021-10-18 19:52 | Emergency (ER) | payer OTHER, SELFPAY ==
[2021-10-18 20:23] VITALS: BP 126/75; PULSE 87; RESP 15; TEMP 37.2; O2SAT 97; BMI 22.6
[2021-10-18] MEDS: Ibuprofen 600 MG TABLET PO (20:28)
--- NOTE | 2021-10-18 20:48 | ED_ITS ---
HPI - Dental/Oral General Chief complaint: Dental/Oral Stated complaint: cyst on jaw? Time Seen by Provider: 10/18/21 20:48 Source: patient Mode of arrival: ambulatory Limitations: no limitations History of Present Illness HPI Narrative: 26-year-old male presents today with a right-sided right-sided jaw and tooth p ain x2 weeks. Patient reports worsening over the past 2 weeks and feels a lump on his jaw. Patient reports he cracked tooth approximately 4 weeks ago 2 weeks prior to onset of symptoms. Patient reports he is unable to see a dentist to October 30 and he rates his pain as a 7/10. Pain is constant unable to report what makes it better or worse. No radiation of pain. Patient is able speak in full sentences and controlling secretions well with no reported airway complaints MD Complaint: tooth pain Location: Tooth # (29,30) Teeth map: 1. fractured teeth 30& 29 Onset (ago): week(s) (2) Duration: constant Severity: severe Severity scale (1-10): 10 Relieving factors: nothing Exacerbating factors: nothing Context: history of dental caries and poor dental care Treatment prior to arrival: none Related Data Previous Rx's Medication Instructions Recorded clindamycin HCl 300 mg capsule 300 mg PO Q8H 7 days #21 caps 07/18/21 ibuprofen 600 mg tablet 600 mg PO Q8H PRN pain #20 tabs 07/18/21 amoxicillin 500 mg capsule 500 mg PO BID 7 days #14 caps 10/18/21 Allergies Allergy/AdvReac Type Severity Reaction Status Date / Time No Known Allergies Allergy Verified 07/03/21 03:29 [No Known Allergies*] Review of Systems Review of Systems: Constitutional : No Fever, No Chills ENT/Mouth : No swallowing difficulty, no change in voice, positive dental pain, positive jaw pain, positive facial swelling Eyes: No Eye Pain, No Swelling Cardiovascular : No Chest Pain, No SOB Respiratory : No Cough, No Sputum Gastrointestinal : No Nausea, No Vomiting, No Diarrhea Genitourinary : No Dysuria Musculoskeletal : No Myalgias Skin : No rash Neuro : No Weakness, No Numbness, No Headache Yes all other systems are reviewed and are negative PMFSH Past Medical History Attestation statement: The following information was validated with the patient. Source: old records reviewed and nursing notes reviewed Medical History Alcohol abuse Liver disease Withdrawal seizures Social History Social History Advance Directives: No Advance Directives Information Provided: No Physical Exam Vital Signs: Vital Signs: Last Vital Signs Temp 98.9 F 10/18/21 20:23 Pulse 87 10/18/21 20:23 Resp 15 10/18/21 20:23 BP 126/75 10/18/21 20:23 Pulse Ox 97 10/18/21 20:23 O2 Del Method 10/18/21 20:23 BMI result Body Mass Index 22.6 VSS Appearance: Alert.? Oriented X3.? No acute distress.? Patient speaks in full sentences controls are with secretions well Head: Normocephalic, atraumatic, no step-offs or deformities. Eyes: Pupils equal, round and reactive to light.? ENT: Pharynx normal.?No trismus. Uvula is midline. Poor dentition. Tooth 29 & 30 fractured, abscess formation around tooth 29 and 30, halatosis Neck: Normal inspection.? Neck supple.? CVS: Normal heart rate and rhythm.? Pulses normal.? Respiratory: No respiratory distress.? Breath sounds normal.? Abdomen: Soft and nontender.? Skin: Skin warm and dry.? Normal skin color.? Normal skin turgor.? Extremities: No lower extremity edema.? No calf ttp. 5/5 strength to bilateral upper and lower extremities Back: No midline tenderness, no C-spine tenderness, full range of motion, no CVA tenderness bilaterally Neuro: Oriented X 3.? No motor deficit.? No sensory deficit. CN 2-12 intact Course Reevaluation(s) Reevaluation #1: Incision and drainage was successfully done using a needle aspiration method at the bedside, 5 cc of serosanguineous fluid and purulence were removed. Patient tolerated procedure well. Patient controlling secretions, speaking in full sentences, immediate relief felt. At this time patient will be discharged home with amoxicillin 500 mg p.o. b.i.d. x7 days, patient was advised to follow-up with his dentist return with new or worsening symptoms which are outlined on his discharge. Comfortable discharge home Time: 21:02 MDM - Dental/Oral MDM Narrative Medical decision making narrative: 2054 26-year-old male presents with right-sided dental abscess of 2 weeks with fracture tooth 4 weeks ago no airway compromise Physical exam significant for poor dentition, right-sided abscess surrounding tooth 30 and 29, overlying fluctuance to concerning for abscess, halitosis. Patient is speaking in full sentences controlling his secretions well no airway compromise Likely gingival/dental abscess. Unlikely peritonsilar abcess or epiglotitis Plan- needle aspiration of abscess. Differential Diagnosis Differential diagnosis: Likely gingival abscess Medical Records Attestation: I reviewed the patient's medical records. Lab Data Attestation: I reviewed the patient's lab results. Procedures Abscess I/D Site: other (around tooth 29 & 39 ) Side (if applicable): right Local Anesthetic: other anesthetic (dental pop ) Technique: needle aspiration Amount of fluid expressed (mL): 5 Sent for culture/gram staining?: No Irrigation: No Packing used?: none Critical Care Time Critical Care Time Critical Care Time: No Discharge Plan Discharge Clinical Impression: Dental abscess, Fracture of tooth Patient Disposition: Home, Self-Care Instructions: Dental Abscess (ED), Toothache (ED) Additional Instructions: Take your medications as prescribed. If you were prescribed antibiotics today, it is important that you take your medication to their entirety, do not skip any doses, do not finish them early. Follow-up with your primary care provider this week. Please follow-up with your dentist as soon as possible see if appointment can be moved forward Return to the emergency department with new or worsening symptoms. Such as fevers, chills, chest pain, shortness of breath, nausea, vomiting, dizziness, headache, vision changes, lethargy, change in voice or trouble controlling secretions/breathing In case of emergency call 911 Ibuprofen every 6 hours, tylenol every 4 hours. Prescriptions: New amoxicillin 500 mg capsule 500 mg PO BID 7 Days Qty: 14 0RF No Action clindamycin HCl 300 mg capsule 300 mg PO Q8H 7 Days Qty: 21 0RF ibuprofen 600 mg tablet 600 mg PO Q8H PRN (Reason: pain) Qty: 20 0RF Referrals: Physician,None [Primary Care Provider] - 2 days
== END 2021-10-18 21:17 | disposition home or self-care (01) ==
PROVIDERS: Emergency Provider Emergency Medicine Emergency Medical Services
DX: K04.7 Periapical abscess without sinus (principal); S02.5XXA Fracture of tooth (traumatic), initial encounter for closed fracture; X58.XXXA Exposure to other specified factors, initial encounter; Y93.9 Activity, unspecified; Y92.9 Unspecified place or not applicable; Y99.9 Unspecified external cause status
CPT/HCPCS: 41800; 99283

== ENCOUNTER 2022-04-03 12:43 | Emergency (ER) | payer OTHER, SELFPAY ==
--- NOTE | ~2022-04-03 | XR_ITS ---
EXAMINATION: CR X-RAY LEFT FOOT AND ANKLE CLINICAL INFORMATION: Dorsal surface pain. COMPARISON: None TECHNIQUE: 3 views each of the left foot and ankle were obtained. FINDINGS: The ankle joint and mortise are intact. The tarsal bones are normally aligned. The metatarsals and phalanges are intact. The joint spaces are unremarkable. There is no acute fracture or dislocation. The soft tissues are unremarkable. No radiopaque foreign body. XR/XR foot LT min 3V IMPRESSION: Unremarkable left foot and ankle.
--- NOTE | ~2022-04-03 | XR_ITS ---
EXAMINATION: CR X-RAY LEFT FOOT AND ANKLE CLINICAL INFORMATION: Dorsal surface pain. COMPARISON: None TECHNIQUE: 3 views each of the left foot and ankle were obtained. FINDINGS: The ankle joint and mortise are intact. The tarsal bones are normally aligned. The metatarsals and phalanges are intact. The joint spaces are unremarkable. There is no acute fracture or dislocation. The soft tissues are unremarkable. No radiopaque foreign body. XR/XR ankle LT min 3V IMPRESSION: Unremarkable left foot and ankle.
[2022-04-03 13:01] VITALS: BP 133/71; PULSE 92; RESP 18; TEMP 37.1; O2SAT 98; BMI 22.4
--- OUTSIDE RECORDS SUMMARY | 2022-04-03 14:37 | XMS_ITS | Continuity of Care Document ---
:1995 Author Organization [facility] Address [address] [place] [address]- Care Team Providers Name Role Phone Not on Staff, PCP Primary Care Physician Unavailable Encounter [facility] Date(s): 08/20/19 - 09/19/19 [facility] [address] [place] [id number] Attending Physician: Brittney Garcia Admitting Physician: Brittney Garcia Referring Physician: Brittney Garcia
--- NOTE | 2022-04-03 15:11 | ED.LOWEXIN ---
HPI - Extremity Injury (Lower) General Chief Complaint: Extremity Injury, Lower Stated Complaint: L Foot Injury 03/30/22 Time Seen by Provider: 04/03/22 15:08 Source: patient Mode of arrival: ambulatory History of Present Illness HPI Narrative: 27-year-old male with a medical history of EtOH abuse, liver disease, withdrawal seizures presenting to the ED complaining of continued left s/p dropping 50 lb box on foot on Friday. Admits was evaluated at [facility] after incident, had negative x-rays with supplied with walking boot and crutches however pain has persisted reports intermittent tingling. Denies new injury/ trauma or fall, numbness, weakness, fever MD complaint: foot injury Onset (ago): day(s) Related Data Previous Rx's Medication Instructions Recorded clindamycin HCl 300 mg capsule 300 mg PO Q8H 7 days #21 caps 07/18/21 ibuprofen 600 mg tablet 600 mg PO Q8H PRN pain #20 tabs 07/18/21 amoxicillin 500 mg capsule 500 mg PO BID 7 days #14 caps 10/18/21 Allergies Allergy/AdvReac Type Severity Reaction Status Date / Time No Known Allergies Allergy Verified 07/03/21 03:29 [No Known Allergies*] Review of Systems Review of Systems: Constitutional: No Fever, No Chills ENT/Mouth: No Ear Pain, No Nasal Congestion, No sore throat, No Rhinorrhea, No Swallowing Difficulty Cardiovascular: No Chest Pain, No SOB Respiratory: No Cough, No Sputum, No Wheezing Gastrointestinal: No Nausea, No Vomiting, No Diarrhea, No Constipation, No Abdominal pain Genitourinary: No Dysuria, No Urinary Frequency, No Hematuria, No Urgency, No Flank Pain Musculoskeletal: + joint pain, No Myalgias, + Joint Swelling Skin: No Skin Lesions, No rash Neuro: No Weakness, No Numbness, No Paresthesias Yes all other systems are reviewed and are negative Constitutional: Constitutional: Reports as per [facility] Past Medical History Attestation statement: The following information was validated with the patient. Medical History Alcohol abuse Liver disease Withdrawal seizures Social History Social History Advance Directives: No Advance Directives Information Provided: No Physical Exam Vital Signs: Vital Signs: Last Vital Signs Temp 98.7 F 04/03/22 13:01 Pulse 92 04/03/22 13:01 Resp 18 04/03/22 13:01 BP 133/71 04/03/22 13:01 Pulse Ox 98 04/03/22 13:01 O2 Del Method 04/03/22 13:01 BMI result Body Mass Index 22.4 Const: General: cooperative, healthy appearing and no acute distress Orientation/consciousness: patient oriented x3 Limitations: no limitations HEENT: Head: Yes normal to inspection and Yes atraumatic Ears: hearing grossly normal bilaterally General nose exam: Normal external nose present Face and sinus: Yes normal facial exam Eyes: General: appearance normal, both eyes and all related structures EOM: EOMs intact bilaterally Neck: Neck: Yes normal visual inspection and Yes no meningeal signs Resp: Effort & Inspection: normal respiratory effort and no respiratory distress Cardio: Rate: regular rate Heart sounds: S1 normal heart sound present and S2 normal heart sound present Peripheral pulses: Peripheral pulses 2+ throughout Skin: Rashes: no rashes Wounds: no wounds Neuro: General: patient oriented x3, tone normal and no meningeal signs Gait exam (Neuro): Normal gait present Extrem: Other: left foot with mild swelling greatest to 1st metatarsal. Mildly tender to palpation. Full range of motion intact to all toes/ankle. Neurovascularly intact. Ambulating with steady gait Course Course Course Narrative: - foot and ankle x-rays unremarkable Results discussed with patient including worrisome signs and symptoms and strict return precautions, and when to return to the emergency department. They verbalized understanding and feel safe for discharge at this time. Medical Decision Making Medical Decision Making [facility] Narrative: 27-year-old male with a medical history of EtOH abuse, liver disease, withdrawal seizures presenting to the ED complaining of continued left s/p dropping 50 lb box on foot on Friday. on exam vital signs stable, NAD, nontoxic-appearing, concern for ankle /foot sprain versus occult fracture. No evidence of cellulitis. Low suspicion for septic joint Plan: Repeat x-ray Differential Diagnoses: Differential diagnosis ( as above) Lab Attestation: I reviewed the patient's lab results. Discharge Plan Discharge Clinical Impression: Foot sprain Patient Disposition: Home, Self-Care Instructions: Foot Sprain (ED) Additional Instructions: Your x-rays today were sprain her ankle /foot. Continue to wear walking boot. Use crutches as needed. Ice and elevate. Take Tylenol and Motrin Prescriptions: No Action clindamycin HCl 300 mg capsule 300 mg PO Q8H 7 Days Qty: 21 0RF ibuprofen 600 mg tablet 600 mg PO Q8H PRN (Reason: pain) Qty: 20 0RF amoxicillin 500 mg capsule 500 mg PO BID 7 Days Qty: 14 0RF Referrals: Physician,None [Primary Care Provider] - Stand Alone Forms: Work/School Release
== END 2022-04-03 15:44 | disposition home or self-care (01) ==
PROVIDERS: Emergency Provider Emergency Medicine Emergency Medical Services
DX: S93.602A Unspecified sprain of left foot, initial encounter (principal); M25.572 Pain in left ankle and joints of left foot; Y29.XXXA Contact with blunt object, undetermined intent, initial encounter; Y93.9 Activity, unspecified; Y92.9 Unspecified place or not applicable; Y99.9 Unspecified external cause status; Z79.899 Other long term (current) drug therapy
CPT/HCPCS: 73610; 73630; 99283

== ENCOUNTER 2023-01-22 14:59 | Emergency (ER) | payer MEDICAID, SELFPAY ==
[2023-01-22 15:13] VITALS: BP 122/99; PULSE 109; RESP 16; TEMP 36.6; O2SAT 99; BMI 21.2
--- NOTE | 2023-01-22 15:13 | ED.GENADULT ---
HPI - General Adult General Chief complaint: General Medical Stated complaint: swollen nodes, fever, covid/ flu symptoms Time Seen by Provider: 01/22/23 15:52 Source: patient Mode of arrival: ambulatory Limitations: no limitations History of Present Illness HPI narrative: Patient is a 28 year old assigned male at with no reported medical history presenting to the emergency department today with a sore throat and body aches. Patient states that over the last 2 days he has had a sore throat and body aches. Patient denies any dizziness, lightheadedness, abdominal pain, nausea, vomiting, fever, chills, blurry vision, double vision, loss of vision, chest pain, difficulty breathing, shortness of breath, back pain, night sweats, pain with urination, increased urinary frequency, increased urinary urgency, blood in his urine or stool, syncope or a near syncopal episode, recent trauma or falls, bowel incontinence, bladder incontinence, bowel retention, bladder retention, or any other complaints at this time. Onset (ago): day(s) (2) Radiation: non-radiation Severity: mild Severity scale (1-10): 3 Quality: aching and dull Pain Consistency: constant Exacerbating factors: none Associated symptoms: denies other symptoms Treatments prior to arrival: none Related Data Previous Rx's Medication Instructions Recorded clindamycin HCl 300 mg capsule 300 mg PO Q8H 7 days #21 caps 07/18/21 ibuprofen 600 mg tablet 600 mg PO Q8H PRN pain #20 tabs 07/18/21 amoxicillin 500 mg capsule 500 mg PO BID 7 days #14 caps 10/18/21 penicillin V potassium 500 mg 500 mg PO BID 10 days #20 tabs 01/22/23 tablet Allergies Allergy/AdvReac Type Severity Reaction Status Date / Time No Known Allergies Allergy Verified 01/22/23 15:13 [No Known Allergies*] Review of Systems Constitutional: Constitutional: Reports no additional constitutional complaints, Reports body ache(s), Denies chills, Denies fever(s) and Denies night sweats Eyes: Eyes: Reports no additional eye complaints, Denies blurry vision, Denies change in vision, Denies diplopia, Denies eye discharge, Denies loss of vision and Denies eye pain ENT: Denies dizziness and Reports sore throat Cardiovascular: Cardiovascular: Reports no additional cardiovascular complaints, Denies chest pain, Denies lightheadedness, Denies Loss of Consciousness and Denies dyspnea Respiratory: Respiratory: Reports no additional respiratory complaints and Denies dyspnea Gastrointestinal: Gastrointestinal: Reports no additional gastrointestinal complaints, Denies abdominal pain, Denies melena, Denies hematochezia, Denies change in bowel habits and Denies change in stool character Genitourinary: Genitourinary: Reports no additional male genitourinary complaints, Denies hematuria, Denies oliguria, Denies difficulty urinating, Denies dysuria, Denies urinary frequency, Denies urinary hesitancy, Denies urinary incontinence and Denies urinary urgency Musculoskeletal: Musculoskeletal: Reports no additional musculoskeletal complaints, Denies numbness and Denies tingling Neurologic: Denies dizziness, Denies loss of vision, Denies numbness and Denies tingling Psychiatric: Psychiatric: Reports no additional psychiatric complaints Endocrine: Endocrine: Reports no additional endocrine complaints Hematologic/Lymphatic: Hematologic/Lymphatic: Reports no additional hematologic/lymphatic complaints Allergic/Immunologic: Allergic/Immunologic: Reports no additional allergic/immunologic complaints PMFSH Past Medical History Attestation statement: The following information was validated with the patient. Source: old records reviewed and nursing notes reviewed Medical History Withdrawal seizures Liver disease Alcohol abuse Social History Social History Advance Directives: No Advance Directives Information Provided: No Physical Exam ED Vital Signs: Vital Signs - 24 hr 01/22/23 15:13 Temperature 98 F Pulse Rate 109 H Respiratory Rate 16 Blood Pressure 122/99 H Pulse Oximetry 99 Oxygen Delivery Method Room Air BMI result Body Mass Index 21.2 Const General: cooperative, no acute distress, alert and awake Nutritional Appearance: well nourished Orientation/consciousness: patient oriented x3 Limitations: no limitations [facility] Head: Yes normal to inspection and Yes atraumatic Ears: hearing grossly normal bilaterally and external ears normal General nose exam: Normal external nose present, no nasal discharge noted and no epistaxis Face and sinus: Yes normal facial exam, No abrasion and No laceration Mouth: Normal oral and palatal mucosa present, no drooling and no muffled voice Throat: Yes abnormal tonsil (bilateral erythema and exudates) Eyes General: appearance normal, both eyes and all related structures Periorbital: periorbital findings normal Eyelids: Yes eyelids normal Conjunctivae: conjunctivae normal Pupils: Equal, round and reactive pupils present EOM: EOMs intact bilaterally Neck Neck: Yes normal visual inspection, Yes full ROM and Yes no lymphadenopathy Chest Chest palpation & inspection: normal inspection of the chest Resp Effort & Inspection: normal respiratory effort and able to speak in complete sentences GI Inspection: Yes normal to inspection Neuro General: patient oriented x3 and moves all extremities Cranial nerves: Yes Equal, round and reactive pupils present Cognition (Neuro): normal cognition Motor exam (neuro): 5/5 motor strength present throughout Sensory Exam: Normal double simultaneous stimulation for sensation Coordination: [id number] test normal Extrem General: Yes normal to inspection, Yes full ROM and Yes capillary refill normal Psych Appearance: grossly normal Mental Status: mental status grossly normal Affect: normal affect Attitude: cooperative Thought process: Normal thought process present Thought content: Normal thought content present Insight: Good insight present (Psych) Course Course Course Narrative: RME:?28 yo M presents with sore throat, body aches, fevers x2 days. 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 driver operator, unknown sick contacts. Denies cough, cp, sob, n/v. Covid neg at home. Lungs CTA b/l. Posterior pharynx erythematous. B/l tonsillar erythema and exudates. Uvula midline. Speaking in complete sentences. Controlling secretions. Flu/covid/rsv/strep ordered. Full HPI, ROS and PE to be performed by the primary ED provider. Medical Decision Making Medical Decision Making [facility] Narrative: Patient is a 28 year old assigned male at with no reported medical history presenting to the emergency department today with a sore throat and body aches. Patient's physical exam was as noted in the physical exam portion of this note. Patient's strep test was positive. Patient's COVID/RSV/Influenza swab was negative. I explained my physical exam findings as well as all test results to the patient. I answered all questions asked by the patient. I stressed the importance of the patient taking his medication as prescribed. I stressed the importance of the patient following up with his primary care provider. I stressed the importance of the patient returning to the emergency department immediately if his symptoms were to worsen or if he were to develop any dizziness, shortness of breath, difficulty breathing, chest pain, blurry vision, loss of vision, nausea, vomiting, abdominal pain, fever, chills, back pain, or any other complaints. Patient verbalized agreement and understanding with this treatment plan and discharge. Differential Diagnosis Differential Diagnoses: The differential diagnosis associated with the presentation includes Strep pharyngitis Pharyngitis URI COVID-19 RSV Influenza Lab Data [facility] Lab Attestation statement: I reviewed the patient's lab results. My interpretation of these results are in the [facility] portion of this note. Labs: Lab Results 01/22/23 Range/Units 15:59 Influenza Type A (PCR) NEGATIVE (Negative) Influenza Type B (PCR) NEGATIVE (Negative) RSV RNA Qual (PCR) NEGATIVE (Negative) SARS-CoV-2 RNA (RT-PCR) NEGATIVE (Negative) S. pyogenes GrpA JUAQUIN Positive A (Negative) Prescription Management I considered prescription management with: Antibiotic (patient prescribed an antibiotic for strep pharyngitis) Discharge Plan Discharge Clinical Impression: Strep pharyngitis Patient Disposition: Home, Self-Care Instructions: Strep Throat (DC) Additional Instructions: Follow up with your primary care provider. Return to the emergency department immediately if your symptoms worsen or if you develop any dizziness, shortness of breath, difficulty breathing, chest pain, blurry vision, loss of vision, nausea, vomiting, abdominal pain, fever, chills, back pain, or any other complaints. Prescriptions: New penicillin V potassium 500 mg tablet 500 mg PO BID 10 Days Qty: 20 0RF No Action clindamycin HCl 300 mg capsule 300 mg PO Q8H 7 Days Qty: 21 0RF ibuprofen 600 mg tablet 600 mg PO Q8H PRN (Reason: pain) Qty: 20 0RF amoxicillin 500 mg capsule 500 mg PO BID 7 Days Qty: 14 0RF Referrals: [facility] [place] Family Medicine [Provider Group] (Call to establish and follow up with a primary care provider. If you already have a primary care provider, please follow up with them.) [facility] [Provider Group] (Call to establish and follow up with a primary care provider. If you already have a primary care provider, please follow up with them.) [facility] [Provider Group] (Call to establish and follow up with a primary care provider. If you already have a primary care provider, please follow up with them.) Stand Alone Forms: Work/School Release Interventions: ED Discharge Assessment Last Done: 01/22/23 17:46 Discharge Date/Time: 01/22/23 17:47 Print Language: Maori
[2023-01-22 16:09] LABS: IDNOW Serial# 6674DD1D; Strep A Nucleic Acid Positive (Negative)
[2023-01-22 16:54] LABS: Influenza A PCR NEGATIVE (Negative); Influenza B PCR NEGATIVE (Negative); Resp Syncy Virus RNA Qual PCR NEGATIVE (Negative); SARS COV2 PCR INHOUSE NEGATIVE (Negative)
== END 2023-01-22 17:47 | disposition home or self-care (01) ==
PROVIDERS: Physician Assistant Medical; Emergency Provider Emergency Medicine
DX: J02.0 Streptococcal pharyngitis (principal); R50.9 Fever, unspecified; M79.10 Myalgia, unspecified site; Z20.822 Contact with and (suspected) exposure to COVID-19; Z20.828 Contact with and (suspected) exposure to other viral communicable diseases
CPT/HCPCS: 0241U; 87651; 99282; 99283

== ENCOUNTER 2023-02-15 13:45 | Emergency (ER) | payer MEDICAID, SELFPAY ==
[2023-02-15 14:04] VITALS: BP 153/80; PULSE 84; RESP 18; TEMP 36.9; O2SAT 98; BMI 21.8
--- NOTE | 2023-02-15 14:04 | ED_ITS ---
HPI - General Adult General Chief complaint: Nausea/Vomiting/Diarrhea Stated complaint: fever/ nausea Related Data Previous Rx's Medication Instructions Recorded clindamycin HCl 300 mg capsule 300 mg PO Q8H 7 days #21 caps 07/18/21 ibuprofen 600 mg tablet 600 mg PO Q8H PRN pain #20 tabs 07/18/21 amoxicillin 500 mg capsule 500 mg PO BID 7 days #14 caps 10/18/21 penicillin V potassium 500 mg 500 mg PO BID 10 days #20 tabs 01/22/23 tablet Allergies Allergy/AdvReac Type Severity Reaction Status Date / Time No Known Allergies Allergy Verified 02/15/23 14:07 [No Known Allergies*] PMF Past Medical History Medical History Withdrawal seizures Liver disease Alcohol abuse Social History Social History Advance Directives: No Advance Directives Information Provided: No Physical Exam ED Vital Signs: Vital Signs - 24 hr 02/15/23 14:04 Temperature 98.4 F Pulse Rate 84 Respiratory Rate 18 Blood Pressure 153/80 H Pulse Oximetry 98 Oxygen Delivery Method Room Air BMI result Body Mass Index 21.8 Course Course Course Narrative: This is a rapid medical exam: Additional HPI, ROS, PE not included below will be deferred to primary provider. Patient is a 28-year-old male presenting to the emergency department with complaint of nausea, vomiting, diarrhea and fever for 3 days. Reports Tmax of 104.3 at home yesterday. Feels symptoms are worse at night. 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 Took Covid test 2 days ago which was negative. Has taken ibuprofen and vitamins with little relief. Denies any blood in emesis or stool. Plan: swabs for flu, Covid, strep, basic labs, UA Medical Decision Making Lab Data 02/15/23 14:18 02/15/23 14:18 Labs: Lab Results 02/15/23 02/15/23 Range/Units 14:18 14:19 WBC 7.2 (4.8-10.8) X10*3/uL RBC 4.47 L (4.60-5.80) X10*6/uL Hgb 14.3 (14.0-18.0) g/dl Hct 41.4 L (42.0-52.0) % MCV 92.6 (80.0-98.0) fL MCH 32.0 (27.0-33.0) pg MCHC 34.5 (31.0-36.0) g/dl RDW 12.3 (11.0-16.0) % Plt Count 222 D (160-400) X10*3/uL MPV 10.8 (9.4-12.4) fL Immature Gran % (Auto) 0.3 (0.0-0.4) % Neut % (Auto) 60.8 (45-73) % Lymph % (Auto) 26.8 (20-40) % [place] % (Auto) 5.4 (2-11) % Eos % (Auto) 5.7 H (0-4) % Baso % (Auto) 1.0 (0-2) % Lymph # (Auto) 1.9 (1.2-4.9) X10*3/uL [place] # (Auto) 0.4 (0.1-1.2) X10*3/uL Eos # (Auto) 0.4 (0.0-0.4) X10*3/uL Baso # (Auto) 0.1 (0.0-0.2) X10*3/uL Abs Immat Gran (auto) 0.02 (0.00-0.03) X10*3/uL Absolute Neuts (auto) 4.4 (2.0-8.3) x10*3/uL Absolute Nucleated RBC 0.000 (0.0-0.012) X10*3/uL Nucleated RBC % (auto) 0.0 (0.0-0.2) /100WBC Sodium 138 (135-145) mmol/L Potassium 3.8 (3.3-5.1) mmol/L Chloride 101 (96-108) mmol/L Carbon Dioxide 24 (22-29) mmol/L Anion Gap 17 (12-20) BUN 4 L (9-16) mg/dL Creatinine 0.70 (0.5-1.4) mg/dL Estim Creat Clear Calc 167.8 Estimated GFR > 60 Random Glucose 97 (60-115) mg/dL Calcium 9.9 (8.4-10.2) mg/dL Magnesium 1.7 (1.6-2.6) mg/dL Total Bilirubin 0.8 (0.0-1.0) mg/dL AST 51 H (5-37) U/L ALT 34 (0-40) U/L Alkaline Phosphatase 68 (39-117) U/L Total Protein 8.6 H (6.5-8.0) g/dL Albumin 4.6 (3.5-5.0) g/dL COVID-19 (ARIANE) Negative (Negative) COVID-19 Clin Com See Note Influenza Type A (JUAQUIN) Negative (Negative) Influenza Type B (JUAQUIN) Negative (Negative) Influenza A & B Note See Note S. pyogenes GrpA JUAQUIN Positive A (Negative) Discharge Plan Discharge Clinical Impression: Nausea, vomiting, and diarrhea Patient Disposition: Left W/O Completing Treatment Prescriptions: No Action clindamycin HCl 300 mg capsule 300 mg PO Q8H 7 Days Qty: 21 0RF ibuprofen 600 mg tablet 600 mg PO Q8H PRN (Reason: pain) Qty: 20 0RF amoxicillin 500 mg capsule 500 mg PO BID 7 Days Qty: 14 0RF penicillin V potassium 500 mg tablet 500 mg PO BID 10 Days Qty: 20 0RF
[2023-02-15 14:25] LABS: Basophils Absolute Auto 0.1 X10*3/uL (0.0-0.2); Eosinophils Absolute Auto 0.4 X10*3/uL (0.0-0.4); Eosinophils Percent Auto 5.7 % (0-4); Hematocrit 41.4 % (42.0-52.0); Hemoglobin 14.3 g/dl (14.0-18.0); Imm Gran Abs Auto 0.02 X10*3/uL (0.00-0.03); Imm Gran Pct Auto 0.3 % (0.0-0.4); Lymphocytes Absolute Auto 1.9 X10*3/uL (1.2-4.9); Lymphocytes Percent Auto 26.8 % (20-40); MANUAL DIFF FLAG NO; Mean Corpuscular HGB Conc 34.5 g/dl (31.0-36.0); Mean Corpuscular Volume 92.6 fL (80.0-98.0); Mean Platelet Volume 10.8 fL (9.4-12.4); Monocytes Absolute Auto 0.4 X10*3/uL (0.1-1.2); Monocytes Percent Auto 5.4 % (2-11); Neutrophils Absolute Auto 4.4 x10*3/uL (2.0-8.3); Neutrophils Percent Auto 60.8 % (45-73); Platelet Count 222 X10*3/uL (160-400); Red Blood Count 4.47 X10*6/uL (4.60-5.80); Red Cell Distribution Width 12.3 % (11.0-16.0); White Blood Count 7.2 X10*3/uL (4.8-10.8)
[2023-02-15 14:32] LABS: IDNOW Serial# 08D9AD1C; Strep A Nucleic Acid Positive (Negative)
[2023-02-15 14:41] LABS: Alanine Aminotransferase 34 U/L (0-40); Albumin Level 4.6 g/dL (3.5-5.0); Alkaline Phosphatase 68 U/L (39-117); Anion Gap 17 (12-20); Aspartate Amino Transferase 51 U/L (5-37); Bilirubin Total 0.8 mg/dL (0.0-1.0); Blood Urea Nitrogen 4 mg/dL (9-16); Calcium 9.9 mg/dL (8.4-10.2); Carbon Dioxide 24 mmol/L (22-29); Chloride 101 mmol/L (96-108); Creatinine Clr Calc Pharmacy 167.8; Estimated Glomerular Filt Rate > 60; Glucose Random 97 mg/dL (60-115); Magnesium 1.7 mg/dL (1.6-2.6); Potassium 3.8 mmol/L (3.3-5.1); Sodium 138 mmol/L (135-145); Total Protein 8.6 g/dL (6.5-8.0)
[2023-02-15 14:44] LABS: COVID-19 Test Negative (Negative); IDNOW Serial# 9DB6401D; IDNOW Serial# BCCEAD1C; Influenza A Negative (Negative); Influenza B2 Negative (Negative)
== END 2023-02-15 15:59 | disposition left against medical advice (07) ==
PROVIDERS: Registered Nurse Emergency; Emergency Provider Emergency Medicine
DX: J02.0 Streptococcal pharyngitis (principal); R11.2 Nausea with vomiting, unspecified; R19.7 Diarrhea, unspecified
CPT/HCPCS: 80053; 83735; 85025; 87502; 87635; 87651; 99281; 99283

== ENCOUNTER 2023-04-22 14:20 | Emergency (ER) | payer MEDICAID, SELFPAY ==
[2023-04-22 14:39] VITALS: BP 137/76; PULSE 88; RESP 20; TEMP 36.8; O2SAT 96; BMI 22.0
--- NOTE | 2023-04-22 14:42 | ED.GENADULT ---
HPI - General Adult General Chief complaint: Dental/Oral Stated complaint: Dental Abscess Time Seen by Provider: 04/22/23 19:19 Source: patient Mode of arrival: ambulatory Limitations: no limitations History of Present Illness HPI narrative: Patient comes to the emergency room complaining of dental pain. Patient states that he already ran out of amoxicillin which was prescribed by his dentist. Patient states that since he ran out of antibiotics a day ago, patient's face has become more swollen and more painful. Patient denies fever chills Related Data Previous Rx's Medication Instructions Recorded clindamycin HCl 300 mg capsule 300 mg PO Q8H 7 days #21 caps 07/18/21 ibuprofen 600 mg tablet 600 mg PO Q8H PRN pain #20 tabs 07/18/21 amoxicillin 500 mg capsule 500 mg PO BID 7 days #14 caps 10/18/21 penicillin V potassium 500 mg 500 mg PO BID 10 days #20 tabs 01/22/23 tablet Lactobacillus rhamnosus GG 15 1 cap PO DAILY #30 caps 04/22/23 billion cell sprinkle capsule (Culturelle) acetaminophen 500 mg capsule 500 mg PO Q6H PRN pain #20 caps 04/22/23 clindamycin HCl 300 mg capsule 300 mg PO TID 10 days #30 caps 04/22/23 ketorolac 10 mg tablet 10 mg PO TID PRN pain 5 days #10 04/22/23 tabs Allergies Allergy/AdvReac Type Severity Reaction Status Date / Time No Known Allergies Allergy Verified 04/22/23 14:44 [No Known Allergies*] Review of Systems Review of Systems: Constitutional : No Weight loss, No Fever, No Chills, No Night Sweats, No Fatigue, No Malaise ENT/Mouth : Patient complaining of dental pain on the right mandibular side, swelling, No Hearing loss, No Ear Pain, No Nasal Congestion, No Sinus Pain, No Hoarseness, No sore throat, No Rhinorrhea, No Swallowing Difficulty Eyes: No Eye Pain, No Swelling, No Redness, No Foreign Body, No Discharge, No Vision Changes Cardiovascular : No Chest Pain, No SOB, No Dyspnea on Exertion, No Orthopnea, No Edema, No Palpitations Respiratory : No Cough, No Sputum, No Wheezing, No Smoke Exposure, No Dyspnea Gastrointestinal : No Nausea, No Vomiting, No Diarrhea, No Constipation, No abdominal Pain, No Hematochezia, No Melena Genitourinary : no irregular bleeding, No Dysuria, No Urinary Frequency, No Hematuria, No Urinary Incontinence, No Urgency, No Flank Pain, No Urinary Flow Changes, No Hesitancy Musculoskeletal : No joint pain, No Myalgias, No Joint Swelling Skin : No Skin Lesions, No rash Neuro : No Weakness, No Numbness, No Paresthesias, No Loss of Consciousness, No Dizziness, No Headache Psych : No Anxiety/Panic, No Depression, No SI/HI/AH/VH, No Social Issues, Heme/Lymph: No Bruising, No Bleeding,No Lymphadenopathy Endocrine : No Polyuria, No Polydipsia, No Temperature Intolerance [facility] Past Medical History Medical History Withdrawal seizures Liver disease Alcohol abuse Social History Social History Advance Directives: No Advance Directives Information Provided: No Physical Exam ED Vital Signs: Vital Signs - 24 hr 04/22/23 14:39 04/22/23 18:19 Temperature 98.2 F 98.9 F Pulse Rate 88 91 Respiratory Rate 20 18 Blood Pressure 137/76 131/77 Pulse Oximetry 96 98 Oxygen Delivery Method Room Air Room Air BMI result Body Mass Index 22.0 Const Other: Appearance: Alert. Oriented X3. No acute distress. Eyes: Pupils equal, round and reactive to light. ENT: Pharynx normal. There is obvious facial swelling, no obvious abscess that could easily be drained. Poor dentition especially in the mandibular right side. Neck: Normal inspection. Neck supple. No lymph nodes noted. No crepitus CVS: Normal heart rate and rhythm. Pulses normal. Normal S1 and S2 Respiratory: No respiratory distress. Breath sounds normal. No Wheezing. No rales Abdomen: Soft and nontender. No rigidity. No distention. Skin: Skin warm and dry. Normal skin color. Normal skin turgor. Extremities: No lower extremity edema. No Lacerations. No Rash Neuro: Oriented X 3. No motor deficit. No sensory deficit. Moving all extremities. No slurred speech. CN 2 through 12 grossly intact Psych: calm, cooperative, normal affect Course Course Course Narrative: RME:?28 year old male here with dental pain/ abscess x1 week. Reports cracked right lower tooth. Seen at dentist and prescribed amoxicillin. completed course however infection is worsening. reports swelling/ pain into right cheek/ neck/ under chin. febrile at home. took tylenol and ibuprofen at 0600 this morning. cannot see dentist til next week. Exam: no appreciable periabical abscess. + significant swelling to right gingiva and right buccal mucosa, no palpable fluctuance. no LAD. afebrile. Plan: labs +/- imaging per primary provider Full HPI, ROS and PE to be performed by the primary ED provider. Medical Decision Making Medical Decision Making MDM Narrative: -patient given clindamycin p.o. and Toradol IM injection. Patient will follow-up with his dentist Differential Diagnosis Differential Diagnoses: The differential diagnosis associated with the presentation includes (Dental abscess, gingivitis, carries) Lab Data 04/22/23 15:39 04/22/23 15:39 Labs: Lab Results 04/22/23 Range/Units 15:39 WBC 7.8 (4.8-10.8) X10*3/uL RBC 3.91 L (4.60-5.80) X10*6/uL Hgb 12.7 L (14.0-18.0) g/dl Hct 37.1 L (42.0-52.0) % MCV 94.9 (80.0-98.0) fL MCH 32.5 (27.0-33.0) pg MCHC 34.2 (31.0-36.0) g/dl RDW 12.2 (11.0-16.0) % Plt Count 195 (160-400) X10*3/uL MPV 10.9 (9.4-12.4) fL Immature Gran % (Auto) 0.3 (0.0-0.4) % Neut % (Auto) 84.5 H (45-73) % Lymph % (Auto) 8.3 L (20-40) % [place] % (Auto) 4.6 (2-11) % Eos % (Auto) 1.5 (0-4) % Baso % (Auto) 0.8 (0-2) % Lymph # (Auto) 0.7 L (1.2-4.9) X10*3/uL [place] # (Auto) 0.4 (0.1-1.2) X10*3/uL Eos # (Auto) 0.1 (0.0-0.4) X10*3/uL Baso # (Auto) 0.1 (0.0-0.2) X10*3/uL Abs Immat Gran (auto) 0.02 (0.00-0.03) X10*3/uL Absolute Neuts (auto) 6.6 (2.0-8.3) x10*3/uL Absolute Nucleated RBC 0.000 (0.0-0.012) X10*3/uL Nucleated RBC % (auto) 0.0 (0.0-0.2) /100WBC Sodium 140 (135-145) mmol/L Potassium 3.9 (3.3-5.1) mmol/L Chloride 103 (96-108) mmol/L Carbon Dioxide 28 (22-29) mmol/L Anion Gap 13 (12-20) BUN 5 L (9-16) mg/dL Creatinine 0.61 (0.5-1.4) mg/dL Estim Creat Clear Calc 194.2 Estimated GFR > 60 Random Glucose 99 (60-115) mg/dL Lactic Acid 1.1 (0.5-2.0) mmol/L Calcium 9.2 D (8.4-10.2) mg/dL Discharge Plan Discharge Clinical Impression: Toothache Patient Disposition: Home, Self-Care Instructions: Toothache (ED) Additional Instructions: Please follow-up with your primary care physician tomorrow. If you have any worsening or new symptoms, please return to the emergency room or call 911 Prescriptions: New clindamycin HCl 300 mg capsule 300 mg PO TID 10 Days Qty: 30 0RF ketorolac 10 mg tablet 10 mg PO TID PRN (Reason: pain) 5 Days Qty: 10 0RF acetaminophen 500 mg capsule 500 mg PO Q6H PRN (Reason: pain) Qty: 20 0RF Culturelle 15 billion cell capsule, sprinkle 1 cap PO DAILY Qty: 30 0RF No Action clindamycin HCl 300 mg capsule 300 mg PO Q8H 7 Days Qty: 21 0RF ibuprofen 600 mg tablet 600 mg PO Q8H PRN (Reason: pain) Qty: 20 0RF amoxicillin 500 mg capsule 500 mg PO BID 7 Days Qty: 14 0RF penicillin V potassium 500 mg tablet 500 mg PO BID 10 Days Qty: 20 0RF
[2023-04-22 15:44] LABS: MANUAL DIFF FLAG NO
[2023-04-22 15:50] LABS: Basophils Absolute Auto 0.1 X10*3/uL (0.0-0.2); Basophils Percent Auto 0.8 % (0-2); Eosinophils Absolute Auto 0.1 X10*3/uL (0.0-0.4); Eosinophils Percent Auto 1.5 % (0-4); Hematocrit 37.1 % (42.0-52.0); Hemoglobin 12.7 g/dl (14.0-18.0); Imm Gran Abs Auto 0.02 X10*3/uL (0.00-0.03); Imm Gran Pct Auto 0.3 % (0.0-0.4); Lymphocytes Absolute Auto 0.7 X10*3/uL (1.2-4.9); Lymphocytes Percent Auto 8.3 % (20-40); Mean Corpuscular HGB Conc 34.2 g/dl (31.0-36.0); Mean Corpuscular Hemoglobin 32.5 pg (27.0-33.0); Mean Corpuscular Volume 94.9 fL (80.0-98.0); Mean Platelet Volume 10.9 fL (9.4-12.4); Monocytes Absolute Auto 0.4 X10*3/uL (0.1-1.2); Monocytes Percent Auto 4.6 % (2-11); Neutrophils Absolute Auto 6.6 x10*3/uL (2.0-8.3); Neutrophils Percent Auto 84.5 % (45-73); Platelet Count 195 X10*3/uL (160-400); Red Blood Count 3.91 X10*6/uL (4.60-5.80); Red Cell Distribution Width 12.2 % (11.0-16.0); White Blood Count 7.8 X10*3/uL (4.8-10.8)
[2023-04-22 16:02] LABS: Lactic Acid 1.1 mmol/L (0.5-2.0)
[2023-04-22 16:05] LABS: Anion Gap 13 (12-20); Blood Urea Nitrogen 5 mg/dL (9-16); Calcium 9.2 mg/dL (8.4-10.2); Carbon Dioxide 28 mmol/L (22-29); Chloride 103 mmol/L (96-108); Creatinine Clr Calc Pharmacy 194.2; Estimated Glomerular Filt Rate > 60; Glucose Random 99 mg/dL (60-115); Potassium 3.9 mmol/L (3.3-5.1); Sodium 140 mmol/L (135-145)
[2023-04-22 18:19] VITALS: BP 131/77; PULSE 91; RESP 18; TEMP 37.2; O2SAT 98
[2023-04-22 20:00] VITALS: BP 130/88; PULSE 70; RESP 16; TEMP 36.6; O2SAT 98
[2023-04-22] MEDS: Clindamycin HCL 300 MG CAPSULE PO (20:15)
[2023-04-22] MEDS: Ketorolac Tromethamine 60 MG/2 ML VIAL IM (20:15)
== END 2023-04-22 20:25 | disposition home or self-care (01) ==
PROVIDERS: Physician Assistant Medical; Emergency Provider Emergency Medicine
DX: K08.89 Other specified disorders of teeth and supporting structures (principal); Z79.899 Other long term (current) drug therapy
CPT/HCPCS: 36415; 80048; 83605; 85025; 96372; 99284; J1885

== ENCOUNTER 2024-12-11 00:30 | Emergency (ER) | payer MEDICAID, SELFPAY ==
[2024-12-11 00:33] VITALS: BP 117/84; PULSE 94; RESP 18; TEMP 36.8; O2SAT 98; BMI 20.6
[2024-12-11 02:49] VITALS: BP 117/76; PULSE 80; RESP 16; TEMP 36.8; O2SAT 96
--- NOTE | 2024-12-11 03:36 | ED_ITS ---
HPI - Extremity Problem General Chief complaint: Extremity Problem Stated complaint: left leg swollen/ pain Time Seen by Provider: 12/11/24 03:29 Source: patient Mode of arrival: ambulatory Limitations: no limitations History of Present Illness ED Provider: Dr. Anushka Jordan HPI Narrative: Patient comes to the emergency room stating that he has been having left-sided calf pain for several months, over last 2 days, he noted that there is a bit of swelling behind the left knee. Pain to touch. Patient denies any chest pain or shortness of breath. Patient states that he custody noted there is a large vein that is behind his left knee. Related Data Previous Rx's ?Medication ?Instructions ?Recorded clindamycin HCl 300 mg capsule 300 mg PO Q8H 7 days #2 1 caps 07/18/21 ibuprofen 600 mg tablet 600 mg PO Q8H PRN pain #20 t abs 07/18/21 amoxicillin 500 mg capsule 500 mg PO BID 7 days #14 ca ps 10/18/21 penicillin V potassium 500 mg 500 mg PO BID 10 days #2 0 tabs 01/22/23 tablet Lactobacillus rhamnosus GG 15 1 cap PO DAILY #30 caps 04/22/23 billion cell sprinkle capsule (Culturelle) acetaminophen 500 mg capsule 500 mg PO Q6H PRN pain #2 0 caps 04/22/23 clindamycin HCl 300 mg capsule 300 mg PO TID 10 days # 30 caps 04/22/23 ketorolac 10 mg tablet 10 mg PO TID PRN pain 5 days #10 04/22/23 tabs Allergies Allergy/AdvReac Type Severity Reaction Status Date / Time No Known Allergies (No Known Allergy Verified 12/11/24 00:35 Allergies*) Review of Systems Review of Systems: Constitutional : No Weight loss, No Fever, No Chills, No Night Sweats, No Fatigue, No Malaise ENT/Mouth : No Hearing loss, No Ear Pain, No Nasal Congestion, No Sinus Pain, No Hoarseness, No sore throat, No Rhinorrhea, No Swallowing Difficulty Eyes: No Eye Pain, No Swelling, No Redness, No Foreign Body, No Discharge, No Vision Changes Cardiovascular : No Chest Pain, No SOB, No Dyspnea on Exertion, No Orthopnea, No Edema, No Palpitations Respiratory : No Cough, No Sputum, No Wheezing, No Smoke Exposure, No Dyspnea Gastrointestinal : No Nausea, No Vomiting, No Diarrhea, No Constipation, No abdominal Pain, No Hematochezia, No Melena Genitourinary : no irregular bleeding, No Dysuria, No Urinary Frequency, No Hematuria, No Urinary Incontinence, No Urgency, No Flank Pain, No Urinary Flow Changes, No Hesitancy Musculoskeletal : Complaining of leg numbness, stretching sensation, believes his left leg is a bit more swollen than the right Neuro : No Weakness, No Numbness, No Paresthesias, No Loss of Consciousness, No Dizziness, No Headache Psych : No Anxiety/Panic, No Depression, No SI/HI/AH/VH, No Social Issues, Heme/Lymph: No Bruising, No Bleeding,No Lymphadenopathy Endocrine : No Polyuria, No Polydipsia, No Temperature Intolerance PMFSH Past Medical History Medical History Withdrawal seizures Liver disease Alcohol abuse Social History Social History Alcohol intake: current Alcohol intake frequency: a few times a month Smoked in Last 30 Days: No Use of substances other than those prescribed or required for medical reasons: No Advance Directives: No Physical Exam Exam: Exam: Appearance: Alert. Oriented X3. No acute distress. Eyes: Pupils equal, round and reactive to light. ENT: Pharynx normal. Neck: Normal inspection. Neck supple. No lymph nodes noted. No crepitus CVS: Normal heart rate and rhythm. Pulses normal. Normal S1 and S2 Respiratory: No respiratory distress. Breath sounds normal. No Wheezing. No rales Abdomen: Soft and nontender. No rigidity. No distention. Skin: Skin warm and dry. Normal skin color. Normal skin turgor. Extremities: No lower extremity edema. No Lacerations. No Rash, there is a varicose vein in the superior aspect of the patient's left leg, no erythema, both legs are symmetrical, there is no swelling at all Neuro: Oriented X 3. No motor deficit. No sensory deficit. Moving all extremities. No slurred speech. CN 2 through 12 grossly intact Psych: calm, cooperative, normal affect Vital Signs: Vital Signs: Last Vital Signs Temp 98.3 F 12/11/24 02:49 Pulse 80 12/11/24 02:49 Resp 16 12/11/24 02:49 BP 117/76 12/11/24 02:49 Pulse Ox 96 12/11/24 02:49 O2 Del Method Room Air 08/16/25 02:49 BMI result Body Mass Index 20.6 Course Course Course Narrative: Patient complaining of symptoms including stretching pain when walking, believes his left leg is more swollen than the right. Patient states that he has been reading [employer] and is afraid that he may have a blood clot. Patient has a history of previous blood clots, I discussed with the patient that most of the symptoms that he mentioned at not a sign of a DVT. We will proceed with a D-dimer Medical Decision Making Medical Decision Making MDM Narrative: Patient's D-dimer is negative. Patient has no risk factors For a DVT. Wells criteria for PE/DVT is 0 Lab Data [facility] Lab Attestation statement: I reviewed the patient's lab results. Labs: Lab Results 12/11/24 Range/Units 03:43 D-Dimer High Sensitivty 177 NG/ML Critical Care Time Critical Care Time Critical Care Time: Yes Total Critical Care Time: 35 Attestation: I have personally provided critical care time. Time includes review of lab data, radiology results, discussion with consultants, and monitoring for potential decompensation. Intervention performed as documented. Discharge Plan Discharge Clinical Impression: Chronic leg pain Patient Disposition: Home, Self-Care Instructions: Leg Pain (ED) Additional Instructions: Please follow-up with your primary care physician tomorrow. If you have any worsening or new symptoms, please return to the emergency room or call 911 Prescriptions: No Action clindamycin HCl 300 mg capsule 300 mg PO Q8H 7 Days Qty: 21 0RF ibuprofen 600 mg tablet 600 mg PO Q8H PRN (Reason: pain) Qty: 20 0RF amoxicillin 500 mg capsule 500 mg PO BID 7 Days Qty: 14 0RF penicillin V potassium 500 mg tablet 500 mg PO BID 10 Days Qty: 20 0RF clindamycin HCl 300 mg capsule 300 mg PO TID 10 Days Qty: 30 0RF ketorolac 10 mg tablet 10 mg PO TID PRN (Reason: pain) 5 Days Qty: 10 0RF acetaminophen 500 mg capsule 500 mg PO Q6H PRN (Reason: pain) Qty: 20 0RF Culturelle 15 billion cell capsule, sprinkle 1 cap PO DAILY Qty: 30 0RF Print Language: Indonesian
[2024-12-11 03:57] LABS: D Dimer High Sensitivity 177 NG/ML
[2024-12-11 04:27] VITALS: BP 118/79; PULSE 76; RESP 15; TEMP 36.7; O2SAT 98
[2024-12-11 04:28] VITALS: BP 118/79; PULSE 76; RESP 15; TEMP 36.7; O2SAT 98
== END 2024-12-11 04:28 | disposition home or self-care (01) ==
PROVIDERS: Emergency Provider Emergency Medicine
DX: M79.662 Pain in left lower leg (principal); R22.42 Localized swelling, mass and lump, left lower limb; F10.239 Alcohol dependence with withdrawal, unspecified; K76.9 Liver disease, unspecified
CPT/HCPCS: 36415; 85379; 99283; 99284